=== PATIENT | male | born 1985 | race Caucasian/White ===

== ENCOUNTER → 2016-12-31 | Outpatient (CLI) | payer OTHER ==
[~2016-12-31] MED LIST: ACET-1256 PO; ADVIN25/60 INH; SYNUNK
[2016-12-31 17:39] LABS: BASO % 0.7 %; BASO ABS # 0.04 K/uL (0-0.2); COMPLETE YES; EOS % 2.2 %; HEMATOCRIT 46.6 % (42-52); IG% 0.2 %; LYMPH % 28.3 %; LYMPH ABS # 1.58 K/uL (1.2-3.4); MEAN CELL VOLUME 90.5 fL (80-100); MEAN CORPUSCULAR HEMOGLOBIN 31.3 pg (25-34); MEAN CORPUSCULAR HGB CONC 34.5 g/dl (32-36); MEAN PLATELET VOLUME 9.8 fL (7.4-10.4); MONO % 10.2 %; NEUT % 58.4 %; PLATELET COUNT 242 K/uL (130-400); RED BLOOD COUNT 5.15 M/uL (4.7-6.1); WHITE BLOOD COUNT 5.58 K/uL (4.8-10.8)
[2016-12-31 18:18] LABS: ALT/SGPT 36 U/L (12-78); AST/SGOT 19 U/L (15-37); BLOOD UREA NITROGEN 12 mg/dl (7-18); BUN/CREATININE RATIO 9.7 (10-20); CALCIUM 9.4 mg/dl (8.5-10.1); CARBON DIOXIDE 30 mmol/L (21-32); CHLORIDE 102 mmol/L (98-107); CHOLESTEROL 196 mg/dl (0-200); GLUCOSE 80 mg/dl (70-99); SODIUM 138 mmol/L (136-145); TRIGLYCERIDES 57 mg/dl (0-150); VERY LOW DENSITY LIPOPROT CALC 11 mg/dl
[2016-12-31 18:29] LABS: ALB/GLOB RATIO 1.3 (0.9-2); ALKALINE PHOSPHATASE 57 U/L (45-117); CHOLESTEROL/HDL RATIO 3.1; HDL CHOLESTEROL 64 mg/dl; LDL CHOLESTEROL CALCULATED 121 mg/dl
== END | disposition home or self-care (01) ==
LOC: C.LAB 16:28
PROVIDERS: ATTEND Nurse Practitioner Adult Health
DX: Z00.00 Encounter for general adult medical examination without abnormal findings (principal); E03.9 Hypothyroidism, unspecified; E55.9 Vitamin D deficiency, unspecified

== ENCOUNTER → 2017-01-09 | Outpatient (CLI) | payer OTHER ==
--- NOTE | 2017-01-09 10:34 | DIAGNOSTIC IMAGING REPORT ---
RIGHT SHOULDER MIN 2 VIEWS ROUTINE CLINICAL HISTORY: Right shoulder pain. COMPARISON: None FINDINGS: Alignment of the right shoulder is anatomic. No fracture or suspicious osseous lesion is identified. There is mild joint space narrowing with osteophytosis and irregularity of the right acromioclavicular joint. IMPRESSION: 1. No acute fracture. 2. Joint space narrowing, sclerosis and irregularity along the right acromioclavicular joint which favors mild to moderate osteoarthritis. Electronically signed by: Rg Doyle M.D. 01/09/2017 10:33 AM Dictated Date/Time: 01/09/2017 10:31 AM
== END | disposition home or self-care (01) ==
LOC: C.RAD1850 09:35
PROVIDERS: ATTEND Nurse Practitioner Adult Health
DX: M25.511 Pain in right shoulder (principal)

== ENCOUNTER 2017-12-30 10:23 | Emergency (ER) | payer OTHER ==
[~2017-12-30] VITALS: Ht 175.3 cm; Wt 91.9 kg
[2017-12-30 10:24] VITALS: TEMP 36.7; Ht 175.3 cm; Wt 91.9 kg
[2017-12-30] MEDS ORDERED: CLR10 PO (11:12)
[2017-12-30] MEDS ORDERED: MULT-506 PO (11:12)
[2017-12-30] MEDS ORDERED: LEVO125T5 PO (11:12)
[2017-12-30] MEDS ORDERED: ADVIN25/60 INH (11:12)
[2017-12-30] MEDS ORDERED: CHOL100010 PO (11:12)
[2017-12-30] MEDS ORDERED: LIDOCAINE 1% BUFFERED INJ 20 ML VIAL INFIL ONE (11:15)
[2017-12-30 11:58] VITALS: BP 139/89; PULSE 53; O2SAT 96
--- NOTE | 2017-12-31 06:27 | EMERGENCY ROOM VISIT NOTE ---
ED Visit Note First contact with patient: 10:43 Chief Complaint: Cut my forehead. History of Present Illness: Mr. Plascencia is a 32-year-old white male who ambulates into the ED by female friend complaining of a mid forehead laceration. Patient reports she was at work less than an hour ago unloading a keg. When he took the Kegel off the cart the cart came up and struck him in the mid forehead causing a laceration. He reports at the time of the injury there was no loss of consciousness. He reports she control bleeding but did not wash the wound and was brought to the emergency department. Associated with his laceration he is complaining of a throbbing discomfort in the area of the laceration in the left parietal area. He rates his discomfort 7 /10. His pain is nonradiating. His pain worsens with palpation. He has not identified any alleviating factors related to the pain. He has not taken any medication for pain prior to arrival at the hospital. He denies any associated symptoms including dizziness, lightheadedness, visual changes, hearing changes, difficulty speaking, difficulty swallowing, difficulty walking/coordinating body movements, neck pain, back pain, abdominal pain, nausea/vomiting. Review of Systems: As noted above in history of present illness. 8 body systems were reviewed and found to be negative as noted above. Past Medical History: Asthma, hypothyroidism. Current Medications: Levothyroxine, Claritin, Advair, multivitamins. Allergies to Medications: Ibuprofen. Social History: Patient is currently employed; he feels safe in his home environment; he admits to alcohol use and denies current tobacco use. Tetanus Immunization Status: Patient reports up-to-date. Physical Examination: Vital Signs: Date Time Temp Pulse Resp B/P (MAP) Pulse Ox O2 Delivery O2 Flow Rate FiO2 12/30/17 11:58 53 16 139/89 96 12/30/17 10:24 36.7 76 20 130/78 95 Room Air GENERAL: 32-year-old female in mild distress due to pain, nontoxic-appearing, afebrile and hemodynamically stable. NEUROLOGICAL: Awake, alert and oriented to person, place and time. Answering questions appropriately and following commands. Normal gait. Good hand eye coordination. No focal motor or sensory deficits. Cranial nerves II through XII grossly intact. Romberg test negative. Good short-term and long-term recall. Normal rapid only movements of the hands and fingers. Normal heel day test. SKIN: Warm, dry and pink. Face: In the mid forearm area patient has a 3.6 cm full-thickness laceration. Minimal active bleeding. HEENT: Atraumatic and normocephalic. Skull: No bony deformity, bony crepitus, swelling or ecchymosis. No raccoons eyes or mejia signs. No drainage from the ears of the neck and the. Face: Laceration as noted above. There is mild swelling in this area but there is no bony deformity, bony crepitus or ecchymosis. No other facial trauma noted. PERRLA. EOMI without nystagmus. Sclera white and conjunctiva pink. No bowel occlusion. No intraoral trauma. Airway patent. Speech is normal and clear. Trachea midline. No jugular venous distention. BACK: No tenderness over the bony cervical spine. Full range of motion of the cervical spine. ED Course: Patient is assessed as noted above. Patient is assessed as noted above. Patient was offered pain medication and denied. Wound Repair: Complexity: Intermediate: Multilayer closure. Verbal consent was obtained after the risks and benefits were explained. The skin was prepped with betadine and a sterile field set. Wound edges of the wound was anesthetized with 3.4 ml buffered 1% lidocaine. The wound was explored for foreign bodies and none found. Copious irrigation was performed using sterile saline. With direct pressure the bleeding subsided. Debridement was not performed. The subcu wound edges were approximated using 5-0 Vicryl with 3 simple interrupted sutures and the cutaneous layer was closed with 5-0 Ethilon with 10 simple interrupted sutures. Hemostasis and excellent approximation was achieved. Antibacterial ointment and a sterile dressing applied. No complications and the patient tolerated the procedure well. Patient was educated about tonight's findings and instructed on his treatment plan; he verbalizes understanding and agreement with this plan. Clinical Impression: Laceration of the forehead. Work-related injury. Disposition: Patient discharged home in stable condition; prior to departure he was reassessed and subjectively reported he was pain-free. Plan: Comfort measures, wound care, and signs of infection were discussed with the patient. Patient was educated on signs of head injury. Patient was encouraged to follow-up with Workmen's Compensation or return to the emergency department for any signs of infection and/or suture removal in 5- 6 days. Patient was encouraged return the ED for any signs of head injury or any new/ concerning symptoms.
== END 2017-12-30 11:59 | disposition home or self-care (01) ==
LOC: C.EDB 10:24 → C.EDD 11:59
DX: S01.81XA Laceration without foreign body of other part of head, initial encounter (principal); W22.8XXA Striking against or struck by other objects, initial encounter; Y92.89 Other specified places as the place of occurrence of the external cause; Y99.0 Civilian activity done for income or pay; J45.909 Unspecified asthma, uncomplicated; E03.9 Hypothyroidism, unspecified; Z79.899 Other long term (current) drug therapy; Z88.8 Allergy status to other drugs, medicaments and biological substances

== ENCOUNTER 2018-01-05 13:35 | Emergency (ER) | payer OTHER ==
[~2018-01-05] VITALS: Ht 175.3 cm; Wt 90.4 kg
[~2018-01-05 13:35] MED LIST changes: -ACET-1256 PO; +CHOL100010 PO; +CLR10 PO; +LEVO125T5 PO; +MULT-506 PO; -SYNUNK
[2018-01-05 13:38] VITALS: BP 153/85; PULSE 86; TEMP 37; O2SAT 96; Ht 175.3 cm; Wt 90.4 kg
--- NOTE | 2018-01-05 23:42 | EMERGENCY ROOM VISIT NOTE ---
History First contact with patient: 13:50 Chief Complaint: SUTURE/STAPLE REMOVAL Stated Complaint: SUTURE REMOVAL Nursing Triage Summary: triage note: Pt presents for removal of sutures to left forehead. History of Present Illness The patient is a 32 year old male who presents to the Emergency Room for suture removal from the left forehead laceration that was repaired in our department 6 days ago. The patient denies any wound complications. Review of Systems Noncontributory Past Medical/Surgical History Medical Problems: (1) Asthma Family History Cancer Hypertension Social History Smoking Status: Former Smoker Alcohol Use: occasionally Marital Status: single Occupation Status: employed Current/Historical Medications Scheduled Cholecalciferol (Vitamin D), 1,000 UNITS PO DAILY Fluticasone Prop/Salmeterol (Advair Diskus 250/50 60 Dose), 1 PUFF INH AMPM Levothyroxine Sodium (Levothyroxine Sodium), 125 MCG PO DAILY Loratadine (Claritin), 10 MG PO DAILY Multivitamin (Multivitamin), 1 TAB PO DAILY Physical Exam Vital Signs Date Time Temp Pulse Resp B/P (MAP) Pulse Ox O2 Delivery O2 Flow Rate FiO2 18 13:38 37.0 86 16 153/85 96 Room Air Pain Rating (0-10): 0 Physical Exam HEENT: Examination of the left upper forehead shows a well-healed laceration without erythema, fluctuance, drainage or diastases. Sutures were removed without any complications. Medical Decision & Procedures ED Course The patient was provided additional verbal and written wound care instructions, including use of vitamin E oil and a high SPF factor sunblock to minimize scar darkening. He was encouraged to follow-up with his PCP as needed for further wound management. Medical Decision Impression Primary Impression: Forehead laceration Additional Impression: Encounter for removal of sutures Departure Information Dispostion Home / Self-Care Forms HOME CARE DOCUMENTATION FORM, IMPORTANT VISIT INFORMATION Patient Instructions My [employer] Additional Instructions Apply vitamin E oil twice daily for the next 2 weeks. Over the next year, anytime you go outside, apply a high SPF factor sunblock to minimize scar darkening. Return to the emergency department for any further wound concerns. Problem Qualifiers Primary Impression: Forehead laceration Encounter type: subsequent encounter Qualified Codes: S01.81XD - Laceration without foreign body of other part of head, subsequent encounter
== END 2018-01-05 14:01 | disposition home or self-care (01) ==
LOC: C.EDB 13:36 → C.EDD 14:01
DX: S01.81XD Laceration without foreign body of other part of head, subsequent encounter (principal); X58.XXXD Exposure to other specified factors, subsequent encounter; J45.909 Unspecified asthma, uncomplicated; Z87.891 Personal history of nicotine dependence